=== PATIENT | female | born 2005 | race Caucasian/White ===

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

== ENCOUNTER → 2024-12-14 | Outpatient (CLI) | payer BC ==
--- NOTE | 2024-12-14 14:27 | CT ---
EXAMINATION TYPE: CT soft tissue neck w con CT DLP: 323 mGycm, Automated exposure control for dose reduction was used. DATE OF EXAM: 12/14/2024 2:01 PM COMPARISON: None. CLINICAL INDICATION:Female, 19 years old with history of J36 PERITONSILLAR ABSCESS; PHH, THROAT INFEC TION TECHNIQUE: Standard enhanced CT of the neck following intravenous administration of 100 cc of Isovue 300. Axial sections with coronal and sagittal reformats were obtained. FINDINGS: Brain: Visualized portions are grossly unremarkable. Orbits: Unremarkable Sinuses: Grossly unremarkable. Suprahyoid Neck: The oral cavity, parapharyngeal and retropharyngeal spaces are clear and symmetric. Enlarged bilateral palatine tonsils with right greater than left. Punctate right palatine tonsillith. No discrete fluid collection. There is mild to moderate narrowing of the airway. Epiglottis is unrem arkable. Symmetric enlarged appearance of the adenoids. No significant surrounding fat stranding iden tified. Infrahyoid Neck: The larynx, hypopharynx, and supraglottic area are clear and symmetric. Parotid Glands: Unremarkable. Submandibular Glands: Unremarkable. Musculoskeletal: No acute osseous pathology. Lymph nodes: Multiple enlarged bilateral cervical lymph nodes with largest in the right jugular xiao on measuring up to 1.5 cm short axis with largest in the left jugular region measuring up to 1.2 cm s hort axis. Vascular structures: Visualized major arteries are patent without evidence of aneurysm. Thoracic Inlet/airway: Airway is patent. The lung apices are clear. Soft tissues/Thyroid: Thyroid and remainder of the soft tissues are unremarkable. Other: none. IMPRESSION: 1. Enlarged bilateral palatine tonsils with right greater than left. Additional enlargement of the a denoids with symmetrical appearance. No significant fat stranding identified. No evidence for periton sillar abscess. Findings could represent tonsillitis and/or tonsillar hypertrophy. 2. Multiple enlarged bilateral cervical lymph nodes which is likely reactive to #1. [facility], , 12/14/2024 2:24 PM
== END | disposition home or self-care (01) ==
LOC: RADCTMAIN 13:26
PROVIDERS: ATTEND Registered Nurse General Practice
DX: J36 Peritonsillar abscess (principal); J35.1 Hypertrophy of tonsils
CPT/HCPCS: 70491; Q9967

== ENCOUNTER → 2024-12-14 | Outpatient (CLI) | payer BC ==
[2024-12-14 14:42] LABS: Basophils # (A) 0.04 10*3/uL (0.00-0.10); Basophils % (A) 0.4 %; Eosinophils # (A) 0.01 10*3/uL (0.04-0.35); Eosinophils % (A) 0.1 %; HCT 34.5 % (37.2-46.3); HGB 10.2 g/dL (12.0-15.0); Immature Platelet Fraction 8.5 % (1.1-6.1); Lymphocytes # (A) 1.07 10*3/uL (0.90-5.00); Lymphocytes % (A) 10.6 %; MCH 21.3 pg (27.0-32.0); MCHC 29.6 g/dL (32.0-37.0); MCV 71.9 fL (80.0-97.0); Monocytes # (A) 1.32 10*3/uL (0.20-1.00); Monocytes % (A) 13.1 %; Neutrophils # (A) 7.61 10*3/uL (1.80-7.70); Neutrophils % (A) 75.6 %; Platelet Count 222 10*3/uL (140-440); RBC 4.80 10*6/uL (4.10-5.20); RDW 16.4 % (11.5-14.5); WBC 10.07 10*3/uL (4.50-10.00)
[2024-12-14 14:59] LABS: ALT 14 U/L (4-34); AST 26 U/L (14-36); African American GFR (CKD) >90 (>60 ml/min/1.73 sqM); Albumin 4.5 g/dL (3.5-5.0); Albumin/Globulin Ratio 1.7; Alkaline Phosphatase 64 U/L (38-126); Anion Gap 11 mmol/L; Blood Urea Nitrogen 8 mg/dL (7-17); Calcium 9.9 mg/dL (8.4-10.2); Carbon Dioxide 26 mmol/L (22-30); Chloride 101 mmol/L (98-107); Globulin 2.7 g/dL; Glucose 81 mg/dL (74-99); Non-African American GFR(CKD) >90 (>60 ml/min/1.73 sqM); Potassium 4.5 mmol/L (3.5-5.1); Sodium 138 mmol/L (137-145); Total Protein 7.2 g/dL (6.3-8.2)
[2024-12-14 23:44] LABS: EBV-EA (IgG) <0.2 AI; EBV-EBNA(IgG) >8.0; EBV-VCA (IgG) 6.5 AI; EBV-VCA (IgM) 0.8 AI
== END | disposition home or self-care (01) ==
LOC: LABWHC1 12:53
PROVIDERS: ATTEND Registered Nurse General Practice
DX: J03.91 Acute recurrent tonsillitis, unspecified (principal)
CPT/HCPCS: 36415; 80053; 85025; 85652; 86140; 86663; 86664; 86665